=== PATIENT | female | born 1995 | race Caucasian/White ===

== ENCOUNTER 2020-10-15 13:43 | Emergency (ER) | payer OTHER ==
[~2020-10-15] VITALS: Ht 167.6 cm; Wt 80.0 kg
--- NOTE | 2020-10-15 13:47 | NUR ---
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 DX W CONCUSSION, NEG HEAD CT SEPTEMBER 20. TODAY WAS FLYING, DURING DESCENT BECAME VERY DIZZY, NAUSEOUS, AND 10/10 MARIN. BLURRY VISION. STS DRANK A LOT OF WATER, NO FOOD TODAY. BIB [facility], 4 ZOFRAN IV W RELIEF BUT VERY DIZZY STILL. A&OX 4 GCS 15, PLEASANT, CALM, VSS, SR ON EKG. PEARLL 6 MM DILATED PUPILS NOTED. DENIES DRUG USE/DENIES ETOH. CALL EGAN/FALL PRECS.
[2020-10-15] MEDS ORDERED: SODIUM CHLORIDE FLUSH 10ML SYR IVF ONE (14:30)
[2020-10-15] MEDS ORDERED: SODIUM CHLORIDE 0.9% 1,000 ML IV ONE (14:30)
[2020-10-15] MEDS ORDERED: DIPHENHYDRAMINE 50 MG/ML, 1ML IVPush ONE (14:30)
[2020-10-15] MEDS ORDERED: METOCLOPRAMIDE 5 MG/ML, 2ML IVPush ONE (14:30)
[2020-10-15] MEDS ORDERED: KETOROLAC 30 MG/1 ML IVPush ONE (14:30)
[2020-10-15] MEDS ORDERED: PRED20TA PO (14:34)
[2020-10-15] MEDS ORDERED: FLUT1DIS IH (14:34)
[2020-10-15] MEDS ORDERED: SERT25TA PO (14:34)
[2020-10-15] MEDS ORDERED: KETOROLAC 30 MG/1 ML ONE (14:37)
[2020-10-15] MEDS ORDERED: METOCLOPRAMIDE 5 MG/ML, 2ML ONE (14:37)
[2020-10-15] MEDS ORDERED: DIPHENHYDRAMINE 50 MG/ML, 1ML ONE (14:37)
--- NOTE | 2020-10-15 14:59 | NUR ---
PT MED NOTED. IVF INFUSING W/O DIFFICULTY. OOB TO [facility] WITH RN ASSIST. VOIDED AND RTD TO [facility] W/O INCIDENT. CALL LIGHT W/I REACH
[2020-10-15 15:31] VITALS: BP 117/87
--- NOTE | 2020-10-15 15:32 | NUR ---
PT RPTS MARIN IMPROVED, 05/24. VERBALIZES "I FEEL BETTER" CHART UP FOR RECHECK, VSS. PT AWARE.
--- NOTE | 2020-10-15 16:26 | NUR ---
TASK RN: DC EDUCATION PROVIDED, PT DEMONSTRATES UNDERSTANDING. PT AMBULATED STEADILY TO DC WITH RN. TO TAKE UBER HOME
== END 2020-10-15 16:28 | disposition home or self-care (01) ==
LOC: ED 16:20
DX: G44.219 Episodic tension-type headache, not intractable (principal); R94.31 Abnormal electrocardiogram [ECG] [EKG]; R11.2 Nausea with vomiting, unspecified; J45.909 Unspecified asthma, uncomplicated
CPT/HCPCS: 93005; 96361; 96374; 96375; 99284; J1200; J1885; J2765; J7030

== ENCOUNTER 2020-10-17 07:03 | Emergency (ER) | payer OTHER ==
[~2020-10-17] VITALS: Ht 160 cm; Wt 79.9 kg
[~2020-10-17 07:03] MED LIST: FLUT1DIS IH; PRED20TA PO; SERT25TA PO
--- NOTE | 2020-10-17 07:19 | NUR ---
PT AMBULATORY TO ROOM FROM TRIAGE, CHANGED INTO GOWN, MONITORS IN PLACE. CALL LIGHT WITHIN REACH. NADN. PT C/O MARIN FOR 2 DAYS, SENSITIVE TO LIGHT WITH N/V. PT STATES SHE HIT HER HEAD IN SEPTEMBER ON A DOOR CAUSING A CONCUSSION, THEN YESTERDAY HIT HER HEAD ON A BIN IN [facility] WHICH CAUSED A HEADACHE AND WANTS TO BE CHECKED OUT. 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
--- NOTE | 2020-10-17 07:23 | NUR ---
ERP AT BS FOR EVAL
[2020-10-17] MEDS ORDERED: SERTRALINE 50MG TABLET PO ONE (07:30)
[2020-10-17] MEDS ORDERED: METOCLOPRAMIDE 5 MG/ML, 2ML IVPush ONE (07:30)
[2020-10-17] MEDS ORDERED: KETOROLAC 30 MG/1 ML IVPush ONE (07:30)
[2020-10-17] MEDS ORDERED: SODIUM CHLORIDE 0.9% 1,000ML IVBOLUS ONE (07:30)
[2020-10-17] MEDS ORDERED: DIPHENHYDRAMINE 50 MG/ML, 1ML IVPush ONE (07:30)
[2020-10-17] MEDS ORDERED: SODIUM CHLORIDE FLUSH 10ML SYR IVF ONE (07:30)
[2020-10-17] MEDS ORDERED: DIPHENHYDRAMINE 50 MG/ML, 1ML ONE (07:32)
[2020-10-17] MEDS ORDERED: METOCLOPRAMIDE 5 MG/ML, 2ML ONE (07:32)
[2020-10-17] MEDS ORDERED: KETOROLAC 30 MG/1 ML ONE (07:33)
--- NOTE | 2020-10-17 07:44 | NUR ---
PIV PLACED, PT MEDICATED PER EMAR. NADN/VSS. CALL LIGHT WITHIN REACH. BED IN LOWEST POSITION, BED RAILS UP X2.
--- NOTE | 2020-10-17 07:46 | NUR ---
PT TO CT
--- NOTE | 2020-10-17 08:01 | NUR ---
PT BACK FROM CT. AMBULATORY TO BR WITH UPRIGHT STEADY GAIT.
[2020-10-17] MEDS ORDERED: SERTRALINE 50MG TABLET ONE (08:03)
[2020-10-17 08:06] VITALS: BP 119/86
--- NOTE | 2020-10-17 08:26 | NUR ---
Patient/Caregiver given discharge instructions and they have confirmed that they understand the instructions. Patient ambulatory with steady gait.
== END 2020-10-17 08:27 | disposition home or self-care (01) ==
LOC: ED 07:22
DX: G43.909 Migraine, unspecified, not intractable, without status migrainosus (principal); Z76.0 Encounter for issue of repeat prescription; J45.909 Unspecified asthma, uncomplicated
CPT/HCPCS: 70450; 96361; 96374; 96375; 99284; J1200; J1885; J2765; J7030